=== PATIENT | male | born 1945 | race Caucasian/White ===

== ENCOUNTER 2024-04-07 16:25 | Observation (INO) | payer OTHER, SELFPAY ==
[2024-04-07 16:27] VITALS: BMI 24.5
[2024-04-07 16:35] VITALS: BP 176/83; PULSE 68; RESP 20; TEMP 36.8; O2SAT 96
--- NOTE | 2024-04-07 16:52 | XR_ITS ---
Examination: Abdomen 2 views TECHNIQUE: AP upright AP supine abdomen 2 views Exam date and time: April 07, 2024 1657 hours INDICATIONS: Unable to eat 24 hours FINDINGS: No free air. Nonobstructive bowel gas pattern Intact osseous structures Visualized lung edwards clear IMPRESSION: Nonobstructive bowel gas pattern
--- NOTE | 2024-04-07 16:53 | PD.EDRME ---
Rapid Medical Screening Exam RME Arrival date/time: 04/07/24 16:25 78-year-old male with history of esophageal stricture presents emergency department today stating he cannot drink any fluids without vomiting Chief Complaint: Dental/Oral/Throat Vital signs: Vital Signs Temperature 98.2 F 04/07/24 16:35 Pulse Rate 68 04/07/24 16:35 Respiratory Rate 20 04/07/24 16:35 Blood Pressure 176/83 H 04/07/24 16:35 Pulse Oximetry (%) 96 04/07/24 16:35 Oxygen Delivery Method Room Air 04/07/24 16:35
[2024-04-07 17:24] LABS: Basophils # (Auto) 0.1 Thou/mm3 (0.0-0.2); Basophils % (Auto) 1 % (0-2.5); Eosinophils # (Auto) 0.1 Thou/mm3 (0.0-0.5); Eosinophils % (Auto) 2 % (0-10); Hematocrit 44.2 % (41.0-53.0); Hemoglobin 14.9 g/dL (13.5-16.0); Immature Granulocytes % (Auto) 0 % (0-0); Immature Granulocytes Auto 0.01 Thou/mm3 (0.00-0.00); Lymphocytes # (Auto) 1.7 Thou/mm3 (1.0-4.8); Lymphocytes % (Auto) 23 % (10-50); Mean Corpuscular HGB Conc 33.7 g/dl (31.0-37.0); Mean Corpuscular Hemoglobin 29.2 pg (25.0-35.0); Mean Corpuscular Volume 87 fL (80-100); Monocytes # (Auto) 0.6 Thou/mm3 (0.0-0.8); Monocytes % (Auto) 8 % (0-12); Neutrophils # (Auto) 5.1 Thou/mm3 (1.8-7.7); Neutrophils % (Auto) 68 % (37-80); Nucleated Red Blood Cell % 0 /100 WBC (0); Platelet Count 258 Thou/mm3 (140-440); RDW Standard Deviation 42.5 fL (35.1-43.9); Red Blood Count 5.11 Miln/mm3 (4.50-5.90); White Blood Count 7.5 Thou/mm3 (3.8-10.6)
[2024-04-07 17:38] LABS: Partial Thromboplastin Time 21.1 Seconds (22.0-36.0); Prothrombin Time 11.4 Seconds (9.0-12.2)
[2024-04-07 17:52] LABS: Alanine Aminotransferase 20 U/L (10-49); Albumin, Serum 4.8 gm/dL (3.4-4.8); Albumin/Globulin Ratio 1.7 (1.2-2.2); Alkaline Phosphatase 82 U/L (46-116); Anion Gap 8 (7-16); Aspartate Amino Transferase 21 U/L (0-34); BUN/Creatinine Ratio 14 Ratio (12-20); Bilirubin,Total 0.8 mg/dL (0.3-1.2); Blood Urea Nitrogen 15 mg/dL (9-23); Calcium 9.7 mg/dL (8.3-10.6); Calcium (Corrected) 9.7 mg/dL (8.5-10.1); Carbon Dioxide 26.3 mMol/L (20.0-31.0); Chloride 107 mMol/L (98-107); Creatinine (Component) 1.1 mg/dL (0.6-1.3); Estimated Creatinine Clearance 56.2 mL/min (>60); Globulin 2.9 gm/dL (2.3-3.5); Glucose 99 mg/dL (74-106); Lipase 40 U/L (12-53); Osmolality,Calculated 282 (275-295); Potassium 4.4 mMol/L (3.4-5.1); Sodium 141 mMol/L (136-145); Total Protein 7.7 gm/dL (5.7-8.2); eGFR > 60 See Note
[2024-04-07 21:14] VITALS: BP 185/95; PULSE 62; RESP 16; TEMP 36.9; O2SAT 99
[2024-04-07 22:02] VITALS: BP 174/85; PULSE 61; RESP 17; TEMP 36.9; O2SAT 96
--- NOTE | 2024-04-07 22:41 | PD.EDADULT ---
ED General RME/HPI General Chief complaint: Dental/Oral/Throat Stated complaint: UNALBLE TO SWALLOW FLUIDS x 24 HRS,HX STRICTURE Time Seen by Provider: 04/07/24 22:01 Arrival date/time: 04/07/24 16:25 RME / HPI RME / HPI narrative: 04/07/24 16:25 78-year-old male with history of esophageal stricture presents emergency department today stating he cannot drink any fluids without vomiting ------- Dr. Brewer?s Main ED Evaluation: 78yo male with a history of esophageal stricture presents to the ED due to not being able to tolerating fluids. Patient states he ate something yesterday morning, reporting he feels like there's a piece of food stuck in his esophagus. He states he hasn't been able to drink fluids since [id number] yesterday, reporting he vomits everything back up. He denies any fever, chills, abdominal pain or any other associated symptoms. He has had previous esophageal dilations by Dr. Londono, who has since retired. He was seen by his PCP today, who sent him here for evaluation. Related Data Home Medications ?Medication ?Instructions ?Recorded ?Confirmed benazepril 20 mg tablet (Lotensin) 20 mg PO BID ##0 08/30/12 06/26/19 tizanidine 4 mg tablet (Zanaflex) 3 tab PO HS #0 tabs 12/18/14 06/25/19 ascorbic acid (vitamin C) 100 mg 100 mg PO QDAY 08/09/17 06/25/19 tablet melatonin 10 mg capsule 10 mg PO QDAY 08/09/17 06/25/19 tamsulosin 0.4 mg capsule 0.4 mg PO QDAY 08/09/17 06/25/19 levetiracetam 500 mg tablet 500 mg PO BID 03/21/19 06/26/19 clopidogrel 75 mg tablet 75 mg PO QDAY 06/25/19 06/25/19 Previous Rx's ?Medication ?Instructions ?Recorded cephalexin 500 mg capsule (Keflex) 500 mg PO BID #20 caps 06/26/19 Allergies Allergy/AdvReac Type Severity Reaction Status Date / Time ciprofloxacin (From Cipro) Allergy Severe Unresponsiv Verified 04/07/24 16:29 e tramadol Allergy Severe CONTRAINDICATED Verified 02/10/25 16:29 FOR SEIZURE ACTIVITY Review of Systems Review of Systems Systems Reviewed: All systems reviewed, normal except as documented Past Medical History Past Medical History NEUROLOGIC: Positive Neurological Disorders, Cerebrovascular Accident and Seizures CARDIAC: Positive Myocardial Infarction, Cardiac Arrhythmia and Hypertension; Negative Cardiac Disorders or Congestive Heart Failure RESPIRATORY: Negative Chronic Obstructive Pulmonary Disease (COPD) or Asthma GASTROINTESTINAL: Negative Gastrointestinal Disorders or Hepatitis GENITOURINARY: Positive Genitourinary Disorders and Benign Prostatic Hyperplasia; Negative Renal Disease MUSCULOSKELETAL: Positive Musculoskeletal Disorders, Arthritis and Fractures ENDOCRINE: Negative Endocrine Disorders, Diabetes Mellitus Type 1 or Diabetes Mellitus Type 2 HEMATOLOGIC: Negative Blood Disorders or Sickle Cell Disease OTHER HISTORY: Positive Hospitalization; Negative Autoimmune Disease, Shingles, Falls, Blood Transfusions, Blood Transfusion Reaction, Anesthesia Reactions, Chemotherapy, Radiation Therapy, MRSA, Chicken Pox, Measles, Rubella (Russian Measles) or Cancer Family History FAMILY HISTORY: Positive Family Cardiac Disorders, Family Gastrointestinal Problems and Family Surgery; Negative Family Psychiatric Problems, Family Respiratory Disorders, Family Cancer or Family Anesthesia Reaction Surgical History SURGICAL: Positive Cardiac Surgery, Coronary Stent, Cardiac Catheterization, Pacemaker, Angiogram and Joint Replacement Social History SMOKING STATUS: Never smoker SUBSTANCE USE: does not use ED Exam Narrative Physical exam: GENERAL APPEARANCE: alert and oriented x 4, well-developed, well-nourished, is unable to tolerate fluids, no acute distress VITALS: All vitals were reviewed and the pulse ox is 96% on room air, which is normal according to my interpretation. HEENT: Normocephalic, atraumatic; pupils equal, round, reactive to light; EOMI; mucous membranes pink, moist; oropharynx clear NECK: Supple LUNGS: CTABL; no wheezes, no rales, no rhonchi HEART: Regular rate, regular rhythm; normal S1, S2; no murmurs ABDOMEN: non distended; normal BS; soft, no tenderness, no guarding, no rebound; no masses, no organomegaly, no hernia BACK: no CVA tenderness EXTREMITIES: atraumatic; no edema NEUROLOGIC: awake; alert and oriented x4; cranial nerves II-XII grossly intact; no focal sensory or motor deficits PSYCHIATRIC: appropriate mood and affect SKIN: warm, dry, normal color; no rashes Course Quality Measures none Orders Category Date Time Status XR abdomen flat and uprght Stat Exams 04/07/24 16:52 Completed CBC Stat Lab 04/07/24 17:10 Completed Comprehensive Metabolic Panel Stat Lab 04/07/24 17:10 Completed Lipase Stat Lab 04/07/24 17:10 Completed PT [Prothrombin Time with INR] Stat Lab 04/07/24 17:10 Completed PTT [Partial Thromboplastin Time] Stat Lab 04/07/24 17:10 Completed Vital Signs Vital signs: Vital Signs Temperature 98.2 F 04/07/24 16:35 Pulse Rate 68 04/07/24 16:35 Respiratory Rate 20 04/07/24 16:35 Blood Pressure 176/83 H 04/07/24 16:35 Pulse Oximetry (%) 96 04/07/24 16:35 Oxygen Delivery Method Room Air 04/07/24 16:[address] 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 ------- [facility] Report Signed Patient: ASHLEY CHAVEZ [facility] Record#: [id number] Birthdate: 1945 Age/Sex: 78 / M Location: [facility] Attending Dr: Ordering Physician: Vinod GRAY)Theodore NP Date of Service: 04/07/24 Procedure(s): XR abdomen flat and uprght Accession Number(s): [id number] cc: Vinod GRAY),Theodore LEE; Latrell Rosales MD~ Examination: Abdomen 2 views TECHNIQUE: AP upright AP supine abdomen 2 views Exam date and time: April 07, 2024 1657 hours INDICATIONS: Unable to eat 24 hours FINDINGS: No free air. Nonobstructive bowel gas pattern Intact osseous structures Visualized lung edwards clear IMPRESSION: Nonobstructive bowel gas pattern Dictated By: Latrell Rosales MD Signed By: <Electronically signed by Latrell Rosales MD in OV> 04/07/24 1715 Medications Medications considered but not ordered:: none Medication administrations:: see above, if any Consultations Consultation(s) initiated? (list below): Yes Consultation #1 (Physician, Specialty, Details): Discussed case with [Dr. Nichols] from [GI] regarding [consultation]. Discussed patients ED course, exam findings, labs, and radiology results. States to admit the patient. Agrees to consult. Time: 22:41 Consultation #2 (Physician, Specialty, Details): Discussed case with [the resident physician, attending Dr. Bonner] from Hospitalist service regarding admission. Discussed patients ED course, exam findings, labs, and radiology results. The Hospitalist [agrees] to accept the patient for admission. Time: 22:45 Diagnosis Differential Diagnosis ED Complaint MDM: esophageal stricture, esophageal CA, esophageal foreign body Most likely diagnosis given after review of the tests above:: esophageal stricture Admission Indicated Admission indicated?: indicated Explain why admission is indicated or not indicated:: Dr. Nichols to see tomorrow. Admission Request Was there a request for admission?: Yes Admission Attestation Admission request attestation: Discussed case with [] from Hospitalist service regarding admission. Discussed patients ED course, exam findings, labs, and radiology results. The Hospitalist [agrees,declines] to accept the patient for admission. Disposition Plan Disposition Plan: Admit Medical Decision Making Differential Diagnosis Differential Diagnosis: esophageal stricture, esophageal CA, esophageal foreign body Lab Data 04/07/24 17:10 04/07/24 17:10 Labs: Lab Results 04/07/24 Range/Units 17:10 WBC 7.5 (3.8-10.6) Thou/mm3 RBC 5.11 (4.50-5.90) Miln/mm3 Hgb 14.9 (13.5-16.0) g/dL Hct 44.2 (41.0-53.0) % MCV 87 (80-100) fL MCH 29.2 (25.0-35.0) pg MCHC 33.7 (31.0-37.0) g/dl RDW Std Deviation 42.5 (35.1-43.9) fL Plt Count 258 (140-440) Thou/mm3 Neut % (Auto) 68 (37-80) % Lymph % (Auto) 23 (10-50) % Rosebud % (Auto) 8 (0-12) % Eos % (Auto) 2 (0-10) % Baso % (Auto) 1 (0-2.5) % Neut # (Auto) 5.1 (1.8-7.7) Thou/mm3 Lymph # (Auto) 1.7 (1.0-4.8) Thou/mm3 Rosebud # (Auto) 0.6 (0.0-0.8) Thou/mm3 Eos # (Auto) 0.1 (0.0-0.5) Thou/mm3 Baso # (Auto) 0.1 (0.0-0.2) Thou/mm3 Immature Gran # (Auto) 0.01 H (0.00-0.00) Thou/mm3 Absolute Nucleated RBC 0.00 (0.00-0.00) Thou/mm3 Immature Gran % 0 (0-0) % Nucleated RBC % 0 (0) /100 WBC PT 11.4 (9.0-12.2) Seconds INR 1.0 (0.9-1.3) APTT 21.1 L (22.0-36.0) Seconds Sodium 141 (136-145) mMol/L Potassium 4.4 (3.4-5.1) mMol/L Chloride 107 (98-107) mMol/L Carbon Dioxide 26.3 (20.0-31.0) mMol/L Anion Gap 8 (7-16) BUN 15 (9-23) mg/dL Creatinine 1.1 (0.6-1.3) mg/dL Estim Creat Clear Calc 56.2 L (>60) mL/min eGFR > 60 (60 - ) See Note BUN/Creatinine Ratio 14 (12-20) Ratio Glucose 99 (74-106) mg/dL Calculated Osmolality 282 (275-295) Calcium 9.7 (8.3-10.6) mg/dL Corrected Calcium 9.7 (8.5-10.1) mg/dL Total Bilirubin 0.8 (0.3-1.2) mg/dL AST 21 (0-34) U/L ALT 20 (10-49) U/L Alkaline Phosphatase 82 (46-116) U/L Total Protein 7.7 (5.7-8.2) gm/dL Albumin 4.8 (3.4-4.8) gm/dL Globulin 2.9 (2.3-3.5) gm/dL Albumin/Globulin Ratio 1.7 (1.2-2.2) Lipase 40 (12-53) U/L Discharge Plan Plan Patient Disposition: Admit Acute Care w/in Hospital Prescriptions/Referrals Prescriptions/Med Rec: No Action tamsulosin 0.4 mg capsule,extended release 24hr 0.4 mg PO QDAY ascorbic acid (vitamin C) 100 mg tablet 100 mg PO QDAY melatonin 10 mg capsule 10 mg PO QDAY benazepril [Lotensin] 20 MG tablet 20 mg PO BID Qty: 0 tizanidine [Zanaflex] 4 MG tablet 3 tab PO HS Qty: 0 levetiracetam 500 mg Tablet 500 mg PO BID clopidogrel 75 mg Tablet 75 mg PO QDAY cephalexin [Keflex] 500 mg Capsule 500 mg PO BID Qty: 20 0RF Referrals: Lee Morel MD [Primary Care Provider] - In 1 week Problem List Clinical Impression: Esophageal stricture Patient/Caregiver Discharge Instructions Print Language: New Zealander Stand Alone Forms: Shannon Award Info., Patient Portal Info Letter
[2024-04-07] MEDS: DEXTROSE 5%-0.45% NS 1,000 ML 100 ML IV (23:17)
--- NOTE | 2024-04-07 23:46 | PD.RESHP ---
Documentation for date of: 04/07/24 HPI History of Present Illness Chief complaint: Dysphagia History of present illness: Mr. Vasquez is a 78-year-old male with history of coronary artery disease, status post pacemaker, hypertension, TIA, hyperlipidemia, seizure, esophageal stricture and BPH who presented to [facility] from home on 04/07/2024 with a chief complaint of dysphagia. According to the patient his symptoms started around Sunday afternoon, reports that he was unable to swallow complained of regurgitation of contents immediately, was unable to swallow liquids which progressively got worse, reports no p.o. intake since then. Patient also complained of hiccups and dry heaving associated with dysphagia, denies any blood in vomitus. Patient reached out to his primary care physician who recommended going to the emergency department. Patient does report history of esophageal stricture, reported he had his last dilation about [address] Londono recovery analyst. Patient otherwise reports history of seizure, followed with Dr. Arevalo, takes Keppra once a day. Patient follows with Dr. Maicol Bain, who is patient's merchandise coordinator. Gastroenterology consulted in ED and recommended admission for further workup. ED Course: ED Vitals: On presentation BP 176/83, P68, RR 20, temp 98.2, O2 sat 96 on room air ED Labs: No significant labs in ED ED Imaging:Abdominal x-ray in ED significant for nonobstructive bowel gas pattern ED Treatment: Patient was started on 1/2NS-D5 in ED, GI consulted in ED recommended admission for EGD and possible dilation of stricture Review of Systems Review of Systems Narrative Review of Systems: ROS: -CONSTITUTIONAL: Denies weight loss, fever and chills. -HEENT: Denies changes in vision and hearing. -RESPIRATORY: Denies SOB and cough. -CV: Denies palpitations and Chest Pain. -GI: Positive for dysphagia, vomiting, dry heaves and hiccups. -: Denies dysuria and urinary frequency. -MSK: Denies myalgia and joint pain. -SKIN: Denies rash and pruritus. -NEUROLOGICAL: Denies headache and syncope. -PSYCHIATRIC: Denies recent changes in mood. Denies anxiety and depression. Past Medical History Past Medical History Comments PMH COMMENT: PMH: Positive for coronary artery disease, status post pacemaker, hypertension, TIA, hyperlipidemia, seizure, esophageal stricture and BPH PSHx: Pacemaker placement, cardiac cath with stent placement, right elbow and right shoulder surgeries Allergies: Ciprofloxacin, tramadol, atorvastatin and other statins, tizanidine Social history: -Smoking: Denies -Alcohol Use: Denies -Illicit Drug Use: Denies -Martial Status: Family History: Family history positive for esophageal strictures in 2 sisters Exam Vital Signs Temp Pulse Resp BP Pulse Ox O2 Del Method 98.5 F 61 17 174/85 H 96 Room Air 04/07/24 22:02 04/07/24 22:02 04/07/24 22:02 04/07/24 22:02 04/07/24 22:02 04/07/24 22:02 Narrative Exam Physical Exam General: Awake and in no acute distress. Conversational and non-toxic appearing. HEENT: Normocephalic, atraumatic, mucous membranes moist. Heart: Regular rate and rhythm, no murmurs. Lungs: Clear to auscultation with no wheezing or crackles. Abdomen: Soft, nondistended, nontender, positive bowel sounds. ?No guarding or rebound tenderness. Neurologic: Alert and oriented x3, no gross neurological deficit, and patient able to move all 4 extremities. Extremities: No edema. Skin: No rash or ecchymoses. Results: Labs 04/07/24 17:10 04/07/24 17:10 Labs: Short CBC 04/07/24 Range/Units 17:10 WBC 7.5 (3.8-10.6) Thou/mm3 Hgb 14.9 (13.5-16.0) g/dL Hct 44.2 (41.0-53.0) % Plt Count 258 (140-440) Thou/mm3 BMP 04/07/24 17:10 Sodium 141 Potassium 4.4 Chloride 107 Carbon Dioxide 26.3 BUN 15 Creatinine 1.1 Glucose 99 Calcium 9.7 Liver Function 04/07/24 Range/Units 17:10 Total Bilirubin 0.8 (0.3-1.2) mg/dL AST 21 (0-34) U/L ALT 20 (10-49) U/L Alkaline Phosphatase 82 (46-116) U/L Albumin 4.8 (3.4-4.8) gm/dL Quality Measures Quality Measures none Advance care planning discussed with:: patient and spouse Medications Home Medications and Allergies Home Medications ?Medication ?Instructions ?Recorded ?Confirmed ?Type benazepril 20 mg tablet (Lotensin) 20 mg PO DAILY ##0 08/30/12 04/08/24 History tizanidine 4 mg tablet (Zanaflex) 3 tab PO HS #0 tabs 12/18/14 04/08/24 History ascorbic acid (vitamin C) 100 mg 100 mg PO QDAY 08/09/17 06/25/19 History tablet melatonin 10 mg capsule 10 mg PO QDAY 08/09/17 04/08/24 History tamsulosin 0.4 mg capsule 0.4 mg PO HS 08/09/17 04/08/24 History levetiracetam 500 mg tablet 500 mg PO DAILY 03/21/19 04/08/24 History clopidogrel 75 mg tablet 75 mg PO QDAY 06/25/19 04/08/24 History aspirin-sodium bicarbonate-citric 1 ea PO QWEEK PRN upset stomach 04/08/24 04/08/24 History acid 324 mg effervescent tablet carboxymethylcellulose sodium 1 % 1 drp ophthalmic (eye) TID PRN dry 04/08/24 04/08/24 History eye liquid gel drops eye(s) cyclosporine 0.05 % eye drops in a 1 drp ophthalmic (eye) BID 04/08/24 04/08/24 History dropperette (Restasis) ezetimibe 10 mg tablet 10 mg PO HS 04/08/24 04/08/24 History ibuprofen 200 mg tablet (Advil) 200 mg PO DAILY PRN sleep 04/08/24 04/08/24 History Allergies Allergy/AdvReac Type Severity Reaction Status Date / Time ciprofloxacin (From Cipro) Allergy Severe Unresponsiv Verified 04/07/24 16:29 e tramadol Allergy Severe CONTRAINDICATED Verified 04/07/24 16:29 FOR SEIZURE ACTIVITY Visit Medications Acetaminophen (Acetaminophen 325 Mg Tablet) 650 mg PO Q6H PRN PRN Reason: PAIN SCALE 1-3 (mild Stop: 05/07/24 23:35 Heparin Sodium (Porcine) (Heparin Sod Inj 5000 Unit/Ml Vial) 5,000 unit SC Q12H ALANNAH Stop: 04/22/24 08:59 Hydralazine HCl (Hydralazine Inj 20 Mg/Ml Vial) 10 mg IV Q6H PRN PRN Reason: SBP > 180, DBP>100 Stop: 05/07/24 23:39 Dextrose/Sodium Chloride (D5-1/2ns) 1,000 mls @ 100 mls/hr IV .Q10H ALANNAH Stop: 04/08/24 08:44 Last Admin: 04/07/24 23:17 Dose: 100 mls/hr Levetiracetam (Levetiracetam Inj 100 Mg/Ml Vial 5ml) 500 mg IVP QPM ALANNAH Stop: 05/08/24 20:59 Ondansetron HCl (Ondansetron Inj 2 Mg/Ml Inj 2 Ml) 4 mg IV Q6H PRN; Protocol PRN Reason: NAUSEA OR VOMITING Stop: 05/07/24 23:35 Pantoprazole Sodium (Pantoprazole Inj 40 Mg Vial) 40 mg IVP QDAY ALANNAH Stop: 05/08/24 08:59 Discontinued Medications Levetiracetam (Levetiracetam Inj 100 Mg/Ml Vial 5ml) 500 mg IVP X1 ONE Stop: 04/07/24 23:42 Assessment & Plan Plan Assessment and plan: Summary: Mr. Vasquez is a 78-year-old male with history of coronary artery disease, status post pacemaker, hypertension, TIA, hyperlipidemia, seizure, esophageal stricture and BPH who presented to [facility] from home on 04/07/2024 with a chief complaint of dysphagia. #Dysphagia Patient complained of imaging throwing up after p.o. intake, reported dysphagia to both liquids and solids, reported having no p.o. intake since Sunday. Does have history of esophageal stricture, reported dilation about [address] Londono. Plan: -GI consulted, appreciate recommendations -N.p.o. -Scheduled for EGD in a.m. -IV Protonix -IV maintenance fluids #Seizure disorder Patient follows Dr. Arevalo outpatient. On Keppra 500 mg daily, patient reports taking Keppra in the evening daily. Plan: -IV Keppra 500 every evening #Hypertension #Coronary artery disease #Status post pacemaker placement Patient on benazepril at home, Plavix at home, patient follows with Dr. Zoey Bain outpatient. Plan: -IV hydralazine as needed -Resume home meds when patient's able to tolerate p.o. meds #Hyperlipidemia Patient is allergic to statins, on ezetimibe at home Plan: -Follow lipid panel in a.m. -Resume home medication when able #Benign prostate hyperplasia N.p.o. currently, resume home meds when able DVT prophylaxis: Heparin every 12 hours GI prophylaxis: IV Protonix Diet: N.p.o. Lines: Peripheral IV Code status: Full code Case discussed with Attending Dr. Bonner. Ronald Dahl PGY1 Disclaimer: This note was dictated by speech recognition. Minor errors in financial operations analyst may be present due to voice recognition software. Attending Provider Attestation/Addendum I have examined the patient, reviewed labs and imaging findings, discussed the case with the resident(s), and reviewed entered orders. I agree with the plan of care as outlined in this note, with these additional summaries/recommendations: Patient is a 78-year-old male with a past medical history of CAD status post 2 stents, seizure disorder, bradycardia status post pacemaker, primary hypertension, prostamegaly, and primary hypertension who presents to [facility] emergency department on 04/07/2024 with chief complaints of symptomatic dysphagia and unable to tolerate any form of oral intake. Gastroenterology was consulted and recommends admission for EGD and thus hospitalist team consulted for continuation of care. #Dysphagia Secondary to both solids and liquids and unable to tolerate any form of oral intake in the last 24 hours. Most likely secondary to esophageal stricture and patient reports he had esophageal dilation approximately [address] Bry ALMEIDA XR: No evidence of SBO or free air under the diaphragm Plan: Start IV maintenance fluids. NPO. Start IV Protonix. Gastroenterology consulted via emergency department with plans for endoscopic intervention. Repeat chemistry and hematology panel in AM. #CAD: Plan: Denies taking aspirin. Will resume home Plavix when able. # Seizure disorder: Patient reports he has been seizure-free for over 5 years. Continue home Keppra #Primary Hypertension: Pending home medication reconciliation. Restart home antihypertensives when tolerating oral intake. PRN hydralazine for SBP >180 or DBP >100 # Prostamegaly: Continue home Flomax when able. Dr. Bonner
[2024-04-08] VITALS (17 sets, daily range): BP systolic 136–183; BP diastolic 75–99; PULSE 59–606; RESP 12–96; TEMP 36.2–37.1; O2SAT 94–100; BMI 25.2
[2024-04-08] MEDS: levETIRAcetam INJ 100 MG/ML VIAL 5ML 500 MG IVP ×2 (00:05→20:23)
--- NOTE | 2024-04-08 00:46 | PC.NURSE ---
REPORT GIVEN TO IRVING MAR. ALL QUESTIONS ASKED AND ANSWERED. IVF INFUSING WITHOUT DIFFICULTY. PATIENT TRANSFERRED TO FLOOR WITH STAFF. PATIENT REMAINS ON ROOM AIR.
--- NOTE | 2024-04-08 02:00 | PC.NURSE ---
re additional home med rec: Pt takes Q Bedtime- Vitamin C, Vitamin K2, Vitamin D4, and Magnesium po. Pt does not remember dose of these vitamins.
[2024-04-08 05:28] LABS: Basophils # (Auto) 0.1 Thou/mm3 (0.0-0.2); Basophils % (Auto) 1 % (0-2.5); Eosinophils # (Auto) 0.3 Thou/mm3 (0.0-0.5); Eosinophils % (Auto) 4 % (0-10); Hematocrit 40.6 % (41.0-53.0); Hemoglobin 13.7 g/dL (13.5-16.0); Immature Granulocytes % (Auto) 0 % (0-0); Immature Granulocytes Auto 0.01 Thou/mm3 (0.00-0.00); Lymphocytes # (Auto) 1.9 Thou/mm3 (1.0-4.8); Lymphocytes % (Auto) 29 % (10-50); Mean Corpuscular HGB Conc 33.7 g/dl (31.0-37.0); Mean Corpuscular Hemoglobin 29.1 pg (25.0-35.0); Mean Corpuscular Volume 86 fL (80-100); Monocytes # (Auto) 0.7 Thou/mm3 (0.0-0.8); Monocytes % (Auto) 10 % (0-12); Neutrophils # (Auto) 3.6 Thou/mm3 (1.8-7.7); Neutrophils % (Auto) 55 % (37-80); Nucleated Red Blood Cell % 0 /100 WBC (0); Platelet Count 228 Thou/mm3 (140-440); Red Blood Count 4.71 Miln/mm3 (4.50-5.90); White Blood Count 6.5 Thou/mm3 (3.8-10.6)
--- NOTE | 2024-04-08 05:38 | PC.NURSE ---
RT notified of EKG order.
--- NOTE | 2024-04-08 06:00 | EKG_ITS ---
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
--- NOTE | 2024-04-08 06:02 | PC.NURSE ---
EKG reordered as RT not able to see EKG order.
[2024-04-08 06:16] LABS: Alanine Aminotransferase 16 U/L (10-49); Albumin, Serum 4.3 gm/dL (3.4-4.8); Albumin/Globulin Ratio 1.7 (1.2-2.2); Alkaline Phosphatase 70 U/L (46-116); Anion Gap 7 (7-16); Aspartate Amino Transferase 17 U/L (0-34); BUN/Creatinine Ratio 17 Ratio (12-20); Bilirubin,Total 0.9 mg/dL (0.3-1.2); Blood Urea Nitrogen 17 mg/dL (9-23); Calcium 9.5 mg/dL (8.3-10.6); Calcium (Corrected) 9.5 mg/dL (8.5-10.1); Carbon Dioxide 25.6 mMol/L (20.0-31.0); Cardiac Risk Estimate 4.4 RATIO (4.0-6.7); Chloride 109 mMol/L (98-107); Cholesterol 176 mg/dL (132-200); Estimated Creatinine Clearance 61.8 mL/min (>60); Globulin 2.5 gm/dL (2.3-3.5); Glucose 110 mg/dL (74-106); HDL Cholesterol 40 mg/dL (40-60); LDL Cholesterol,Calculated 116 mg/dL (0-130); Magnesium 2.2 mg/dL (1.6-2.6); Osmolality,Calculated 285 (275-295); Phosphorous 2.7 mg/dL (2.4-5.1); Potassium 3.9 mMol/L (3.4-5.1); Sodium 142 mMol/L (136-145); Total Protein 6.8 gm/dL (5.7-8.2); Triglycerides 99 mg/dL (30-150); eGFR > 60 See Note
--- NOTE | 2024-04-08 08:53 | PD.IMCONS ---
HPI Data of Consult Requesting Physician: Arnulfo Bonner MD Primary Care Provider: Lee Morel MD Consult Narrative Reason for consult: Stricture esophagus History of present illness: 78 years of male evaluated at the request of the ER physician He presented there with dysphagia and unable to swallow not clear whether he has a foreign body obstruction He could not even swallow water and spit it the entire amount out He does have a previous history of endoscopic dilatation about 7 to [address] Londono cc:: cc: Arnulfo Bonner MD Review of Systems Review of Systems Systems Reviewed: All systems reviewed, normal except as documented Past Medical History Surgical History OTHER SURGICAL HX: Essential hypertension Hyperlipidemia BPH Meds Home Medications and Allergies Home Medications ?Medication ?Instructions ?Recorded ?Confirmed ?Type benazepril 20 mg tablet (Lotensin) 20 mg PO DAILY ##0 08/30/12 04/08/24 History tizanidine 4 mg tablet (Zanaflex) 3 tab PO HS #0 tabs 12/18/14 04/08/24 History ascorbic acid (vitamin C) 100 mg 100 mg PO QDAY 08/09/17 06/25/19 History tablet melatonin 10 mg capsule 10 mg PO QDAY 08/09/17 04/08/24 History tamsulosin 0.4 mg capsule 0.4 mg PO HS 08/09/17 04/08/24 History levetiracetam 500 mg tablet 500 mg PO DAILY 03/21/19 04/08/24 History clopidogrel 75 mg tablet 75 mg PO QDAY 06/25/19 04/08/24 History aspirin-sodium bicarbonate-citric 1 ea PO QWEEK PRN upset stomach 04/08/24 04/08/24 History acid 324 mg effervescent tablet carboxymethylcellulose sodium 1 % 1 drp ophthalmic (eye) TID PRN dry 04/08/24 04/08/24 History eye liquid gel drops eye(s) cyclosporine 0.05 % eye drops in a 1 drp ophthalmic (eye) BID 04/08/24 04/08/24 History dropperette (Restasis) ezetimibe 10 mg tablet 10 mg PO HS 04/08/24 04/08/24 History ibuprofen 200 mg tablet (Advil) 200 mg PO DAILY PRN sleep 04/08/24 04/08/24 History Allergies Allergy/AdvReac Type Severity Reaction Status Date / Time ciprofloxacin (From Cipro) Allergy Severe Unresponsiv Verified 04/07/24 16:29 e tramadol Allergy Severe CONTRAINDICATED Verified 04/07/24 16:29 FOR SEIZURE ACTIVITY Exam Vital Signs Temp Pulse Resp BP Pulse Ox O2 Del Method 98.7 F 61 18 149/89 H 100 Room Air 04/08/24 08:00 04/08/24 08:00 04/08/24 08:00 04/08/24 08:00 04/08/24 08:00 04/08/24 08:00 Constitutional Comments: Alert oriented Routine Respiratory Exam Comments: Normal to auscultation Routine Abdominal Exam Comments: Soft nontender Results Labs 04/08/24 04:12 04/08/24 04:12 Labs: Short CBC 04/07/24 04/08/24 Range/Units 17:10 04:12 WBC 7.5 6.5 (3.8-10.6) Thou/mm3 Hgb 14.9 13.7 (13.5-16.0) g/dL Hct 44.2 40.6 L (41.0-53.0) % Plt Count 258 228 D (140-440) Thou/mm3 BMP 04/07/24 04/08/24 17:10 04:12 Sodium 141 142 Potassium 4.4 3.9 D Chloride 107 109 H Carbon Dioxide 26.3 25.6 BUN 15 17 Creatinine 1.1 1.0 Glucose 99 110 H Calcium 9.7 9.5 Liver Function 04/07/24 04/08/24 Range/Units 17:10 04:12 Total Bilirubin 0.8 0.9 (0.3-1.2) mg/dL AST 21 17 (0-34) U/L ALT 20 16 (10-49) U/L Alkaline Phosphatase 82 70 (46-116) U/L Albumin 4.8 4.3 D (3.4-4.8) gm/dL Assessment and Plan Additional Assessment & Plan Additional Plan: # Esophageal stricture # excessive salivation secondary to the stricture Plan Consent obtained for fiberoptic esophagogastro duodenoscopy with possible endoscopic dilatation with guidewire savory dilatation or endoscopic balloon dilatation or both under intravenous moderate sedation N.p.o. Further evaluation after above Thank you once again for the opportunity to participate in the care of this patient
[2024-04-08] MEDS: PANTOPRAZOLE INJ 40 MG VIAL IVP (10:19)
[2024-04-08] MEDS: hydrALAZINE INJ 20 MG/ML VIAL 10 MG IV (11:55)
--- NOTE | 2024-04-08 12:00 | ESPR_ITS ---
Documentation for date of: 04/08/24 Subjective Subjective Interval history: Patient seen at bedside. No acute overnight events. He is a 78-year-old male with a past medical history of hypertension, hyperlipidemia, seizure disorder, CAD, status post pacemaker, esophageal stricture who presented to the ED on 04/07/2024 with complaints of dysphagia. Patient has not had a similar episode about 6 years ago for which she had esophageal dilation done by special crimes investigator Dr. Londono. In the ED, patient was stable except for elevated blood pressure of 176. This was n.p.o., GI was consulted and scheduled for upper endoscopy this morning. At bedside today, he has no complaints and is anticipating the procedure being done. Exam Vital Signs Temp Pulse Resp BP Pulse Ox O2 Del Method 98.7 F 62 18 175/99 H 100 Room Air 04/08/24 08:00 04/08/24 11:55 04/08/24 08:00 04/08/24 11:55 04/08/24 08:00 04/08/24 08:00 Narrative Exam GENERAL: AAOX3 NEURO: CITY COUNCIL MEMBER grossly intact, moves extremities x4 HEENT: Moist mucosa. Eyes open, symmetrical, & clear CARDIO: No chest pain on palpation. Heart RRR, no obvious murmurs PULM: No noted coughing/dyspnea. Lungs CTA B/L GI: Abdomen soft, nondistended, no pain on palpation. BSx4 URO/CASHIERS SUPERVISOR:: No further abnormalities noted. SKIN/MSK/EXT: No wounds/rashes/edema/amputations, no pain on palpation. Pedal pulses present B/L Objective Labs 04/08/24 04:12 04/08/24 04:12 Labs: Laboratory Results - last 24 hr 04/07/24 04/08/24 17:10 04:12 WBC 7.5 6.5 RBC 5.11 4.71 Hgb 14.9 13.7 Hct 44.2 40.6 L MCV 87 86 MCH 29.2 29.1 MCHC 33.7 33.7 RDW Std Deviation 42.5 42.0 Plt Count 258 228 D Neut % (Auto) 68 55 Lymph % (Auto) 23 29 Moca % (Auto) 8 10 Eos % (Auto) 2 4 Baso % (Auto) 1 1 Neut # (Auto) 5.1 3.6 Lymph # (Auto) 1.7 1.9 Moca # (Auto) 0.6 0.7 Eos # (Auto) 0.1 0.3 Baso # (Auto) 0.1 0.1 Immature Gran # (Auto) 0.01 H 0.01 H Absolute Nucleated RBC 0.00 0.00 Immature Gran % 0 0 Nucleated RBC % 0 0 PT 11.4 INR 1.0 APTT 21.1 L Sodium 141 142 Potassium 4.4 3.9 D Chloride 107 109 H Carbon Dioxide 26.3 25.6 Anion Gap 8 7 BUN 15 17 Creatinine 1.1 1.0 Estim Creat Clear Calc 56.2 L 61.8 eGFR > 60 > 60 BUN/Creatinine Ratio 14 17 Glucose 99 110 H Calculated Osmolality 282 285 Calcium 9.7 9.5 Corrected Calcium 9.7 9.5 Phosphorus 2.7 Magnesium 2.2 Total Bilirubin 0.8 0.9 AST 21 17 ALT 20 16 Alkaline Phosphatase 82 70 Total Protein 7.7 6.8 Albumin 4.8 4.3 D Globulin 2.9 2.5 Albumin/Globulin Ratio 1.7 1.7 Triglycerides 99 Cholesterol 176 LDL Cholesterol, Calc 116 HDL Cholesterol 40 Cholesterol/HDL Ratio 4.4 Lipase 40 Quality Measures Quality Measures none Advance care planning discussed with:: patient and spouse Assessment & Plan Assessment Current Active Medications: Generic Name Dose Route Start Last Admin Trade Name Freq PRN Reason Stop Dose Admin Acetaminophen 650 mg 04/07/24 23:36 Acetaminophen 325 Mg Tablet PO 05/07/24 23:35 Q6H PRN PAIN SCALE 1-3 (mild Heparin Sodium (Porcine) 5,000 unit 04/08/24 09:00 04/08/24 10:24 Heparin Sod Inj 5000 Unit/Ml Vial SC 04/22/24 08:59 Not Given Q12H ALANNAH Hydralazine HCl 10 mg 04/08/24 07:53 04/08/24 11:55 Hydralazine Inj 20 Mg/Ml Vial IV 05/07/24 23:39 10 mg Q6H PRN Administration SBP > 160 Levetiracetam 500 mg 04/08/24 21:00 Levetiracetam Inj 100 Mg/Ml Vial 5ml IVP 05/08/24 20:59 QPM ALANNAH Ondansetron HCl 4 mg 04/07/24 23:36 Ondansetron Inj 2 Mg/Ml Inj 2 Ml IV 05/07/24 23:35 Q6H PRN NAUSEA OR VOMITING Protocol Pantoprazole Sodium 40 mg 04/08/24 09:00 04/08/24 10:19 Pantoprazole Inj 40 Mg Vial IVP 05/08/24 08:59 40 mg QDAY ALANNAH Administration Plan Summary: The patient is a 78-year-old male with history of coronary artery disease, status post pacemaker, hypertension, TIA, hyperlipidemia, seizure, esophageal stricture and BPH who presented to [facility] from home on 04/07/2024 with a chief complaint of dysphagia. #Dysphagia #History of esophageal stricture s/p dilation Patient complained of imaging throwing up after p.o. intake, reported dysphagia to both liquids and solids, reported having no p.o. intake since Sunday. Does have history of esophageal stricture, reported dilation about [address] Londono. Plan: -GI consulted, appreciate recommendations -N.p.o. -Scheduled for EGD today -IV Protonix -IV maintenance fluids #Seizure disorder Patient follows Dr. Arevalo outpatient. On Keppra 500 mg daily, patient reports taking Keppra in the evening daily. Plan: -IV Keppra 500 every evening #Hypertension #Coronary artery disease #Status post pacemaker placement Patient on benazepril at home, Plavix at home, patient follows with Dr. Zoey Bain outpatient. Plan: -IV hydralazine as needed -Resume home meds when patient's able to tolerate p.o. meds #Hyperlipidemia Patient is allergic to statins, on ezetimibe at home Lipid panel: LDL- 116, HDL- 40, Trig- 99 Plan: -Resume home medication after procedure #Benign prostate hyperplasia N.p.o. currently, resume tamsulosin when able DVT prophylaxis: Heparin every 12 hours GI prophylaxis: IV Protonix Diet: N.p.o. Lines: Peripheral IV Code status: Full code Case was discussed with Dr Stokes PGY-2 and attending physician, Dr Joyce Loza MD PGY-1 Disclaimer: This note was dictated by speech recognition. Minor errors in fuel efficient automobile designer may be present due to voice recognition software. Attending Provider Attestation/Addendum I reviewed labs, imaging, EKG, home medications and prior available records. Face to face evaluation was performed by me. I have personally examined the patient and discussed assessment and plan with the IM team. I reviewed the resident note and agree with the plan with exceptions as below. Dysphagia: Pharyngeal versus esophageal. Likely in the setting of esophageal stricture. Consulted GI for EGD and possible dilation. N.p.o. prior to the procedure.
--- NOTE | 2024-04-08 18:50 | SUR.PHASEI ---
1850: Pt. AAOx4, vitals stable, breathing unlabored, no complaint of pain or nausea, no dressing inplace, no active bleed noted, report received from Gianna VILLATORO.
--- NOTE | 2024-04-08 19:17 | SUR.PHASEI ---
1916: Pt. AAOx4, vitals stable, breathing unlabored, no complaint of pain or nausea, no dressing in place, no active bleed noted, pt. tolerated sips of water well, gave report to Philly VILLATORO prior to transfer to room 367. Family made aware of transfer to room.
--- NOTE | 2024-04-08 20:25 | PC.NURSE ---
Received patient from FATIMAH, alert, ambulated to bathroom, voided. at bedside, states that patient is going home tonight as per FATIMAH TARIQ. Explained that primary MD has to be notified first.
--- NOTE | 2024-04-08 20:30 | PC.NURSE ---
Multiple calls made to Hospitalist regarding patient possible discharge tonight. Will be in to see patient.
--- NOTE | 2024-04-08 20:50 | PC.NURSE ---
Tolerated Jello and pudding well. Aspiration precaution observed. Patient ambulated around the unit.
--- NOTE | 2024-04-09 09:33 | ESDS_ITS ---
Planned Discharge Date 04/09/24 DS: Providers Provider Date of admission: 04/07/24 23:36 Primary care physician: Lee Morel MD Admitting Provider: Arnulfo Bonner MD Attending Provider on Admission: Raghav Cook MD Consults: 04/07/24 22:42 Consult to Gastroenterology Stat Comment: Consulting Provider: Ivett Nichols 04/08/24 02:12 Referral Registered Dietitian Routine Comment: Attending Provider on DC: Kendall Loza MD Discharging Provider: Kendall Loza MD DS: Diagnosis Problem List Completed Was Problem List Reviewed/Reconciled?: Yes Hospital Course Hospital Course Hospital course: The patient is a 78-year-old male with a past medical history of hypertension, hyperlipidemia, seizure disorder, CAD status post pacemaker, esophageal stric ture presented to the ED on 04/07/2024 with complaints of dysphagia. He had had a similar episode about 6 years ago for which he had esophageal dilation done and has been relatively symptom-free since then. On this occasion, dysphagia was initially 2 solids but progressed to liquids as well. He was admitted for further evaluation and management of dysphagia. Cutter Operator Tile Dr. Nichols was consulted the patient was placed n.p.o. for procedure. He had upper endoscopy done on 04/08/[address] Nichols which showed some esophagitis with biopsies taken and esophageal stenosis which was dilated with a balloon. The patient tolerated procedure well and was cleared for discharge. He is hemodynamically and clinically stable. He is recommended to follow-up with his PCP within 1 week of discharge and continue on omeprazole 40 mg daily for 90 days. #Dysphagia s/p dilation #History of esophageal stricture status post dilation #Seizure disorder #CAD #Status post pacemaker placement Discharge instructions: Follow-up with PCP within 1 week of discharge Continue omeprazole 40 mg daily for 90 days Return to the ED if symptoms worsen Case was discussed with Dr Stokes PGY-2 and attending physician, Dr Joyce Loza MD PGY-1 Disclaimer: This note was dictated by speech recognition. Minor errors in fish seiner may be present due to voice recognition software. Status at Discharge Overall status at discharge: patient is back to baseline Time Spent with Patient Time attestation: Total time spent providing and/or coordinating discharge services: Time spent: Greater than 30 minutes Exam Vital Signs Temp Pulse Resp BP Pulse Ox O2 Del Method 97.4 F 67 17 136/86 H 97 Room Air 04/08/24 21:20 04/08/24 21:20 04/08/24 21:20 04/08/24 21:20 04/08/24 21:20 04/08/24 21:20 Narrative Exam GENERAL: AAOX3 NEURO: PRESS TENDER grossly intact, moves extremities x4 HEENT: Moist mucosa. Eyes open, symmetrical, & clear CARDIO: No chest pain on palpation. Heart RRR, no obvious murmurs PULM: No noted coughing/dyspnea. Lungs CTA B/L GI: Abdomen soft, nondistended, no pain on palpation. BSx4 URO/HONING MACHINE SET UP OPERATOR TOOL:: No further abnormalities noted. SKIN/MSK/EXT: No wounds/rashes/edema/amputations, no pain on palpation. Pedal pulses present B/L Discharge Plan Plan Patient Disposition: HOME (Self Care) Disposition Comment: Home Patient condition on transfer: Stable Care Plan Goals: Follow up with PCP in 1 week. Return to ED if symptoms worsen. Prescriptions/Referrals Prescriptions/Med Rec: New pantoprazole 40 mg tablet,delayed release (DR/EC) 40 mg PO QDAY Qty: 30 0RF Continued tamsulosin 0.4 mg capsule,extended release 24hr 0.4 mg PO HS ascorbic acid (vitamin C) 100 mg tablet 100 mg PO QDAY benazepril [Lotensin] 20 MG tablet 20 mg PO DAILY Qty: 0 levetiracetam 500 mg Tablet 500 mg PO DAILY clopidogrel 75 mg Tablet 75 mg PO QDAY ezetimibe 10 mg tablet 10 mg PO HS cyclosporine [Restasis] 0.05 % dropperette 1 drp OPHTHALMIC (EYE) BID Rx Instructions: 1 drop in both eyes carboxymethylcellulose sodium 1 % drops, liquid gel 1 drp ophthalmic (eye) TID PRN (Reason: dry eye(s)) Discontinued melatonin 10 mg capsule 10 mg PO QDAY tizanidine [Zanaflex] 4 MG tablet 3 tab PO HS Qty: 0 ibuprofen [Advil] 200 mg tablet 200 mg PO DAILY PRN (Reason: sleep) Rx Instructions: prn for relaxing sleep. aspirin-sod bicarb-citric acid 324 mg tablet, effervescent 1 ea PO QWEEK PRN (Reason: upset stomach) Referrals: Lee Morel MD [Primary Care Provider] - Patient/Caregiver Discharge Instructions Other Discharge Activity Instructions:: Follow up with PCP in 1 week. Return to ED if symptoms worsen. Education Materials: Esophageal Dilation, Upper GI Endoscopy, Treating Dysphagia Print Language: [place] Citizen Stand Alone Forms: Shannon Award Info., Patient Portal Info Letter, Work/Release Restrictions Discharge Order Discharge Orders: Discharge (Routine); Ordered 04/08/24 Ordered By: Ronald Dahl Quality Discharge Quality Measures VTE prophylaxis MD Attestestation MD Attestation I reviewed labs, imaging, EKG, home medications and prior available records. Face to face evaluation was performed by me. I have personally examined the patient and discussed assessment and plan with the IM team. I reviewed the resident note and agree with the plan with exceptions as below. Dysphagia: Pharyngeal versus esophageal. Likely in the setting of esophageal stricture. Consulted GI for EGD and possible dilation. N.p.o. prior to the procedure. He underwent the EGD and he is status post dilation. Patient tolerated his diet well. Discussed with GI: Okay to DC. Time spent is 35 minutes. More than 50% of the time was spent on patient education and coordination of care.
== END 2024-04-08 21:31 | disposition home or self-care (01) ==
LOC: SERX 22:49 → S3SX 04-08 05:41 → SERHOLD 04-08 11:10 → S3SX 04-08 11:12
PROVIDERS: Nurse Practitioner Primary Care; Specialist; Admitting Provider Student in an Organized Health Care Education/Training Program; Emergency Provider Emergency Medicine; PCP Family Medicine; Visit Provider Student in an Organized Health Care Education/Training Program
PROC: (CPT 43239; principal; 2024-04-08 18:45)
DX: K22.2 Esophageal obstruction (principal); E78.5 Hyperlipidemia, unspecified; G40.909 Epilepsy, unspecified, not intractable, without status epilepticus; I10 Essential (primary) hypertension; I25.10 Atherosclerotic heart disease of native coronary artery without angina pectoris; I25.2 Old myocardial infarction; K11.7 Disturbances of salivary secretion; K20.90 Esophagitis, unspecified without bleeding; M19.90 Unspecified osteoarthritis, unspecified site; N40.0 Benign prostatic hyperplasia without lower urinary tract symptoms; Z82.49 Family history of ischemic heart disease and other diseases of the circulatory system; Z86.73 Personal history of transient ischemic attack (TIA), and cerebral infarction without residual deficits; Z95.0 Presence of cardiac pacemaker; Z95.5 Presence of coronary angioplasty implant and graft; K29.70 Gastritis, unspecified, without bleeding; K44.9 Diaphragmatic hernia without obstruction or gangrene; K29.50 Unspecified chronic gastritis without bleeding; K31.89 Other diseases of stomach and duodenum; Z01.810 Encounter for preprocedural cardiovascular examination
CPT/HCPCS: 43248; 43249; 43239; 36415; 74019; 80053; 80061; 83690; 83735; 84100; 84484; 85025; 85610; 85730; 93005; 94762; 96374; A4649; C1726; C1769; G0378; J0360; J1200; J1953; J2250; J2470; J3010; J7042

== ENCOUNTER → 2024-04-18 | Outpatient (CLI) | payer OTHER, SELFPAY ==
[2024-04-18 11:31] LABS: Collection Type, Urine Clean Catch; Squamous Epithelial Cell,Urine 0 /hpf (0-5); WBC,Urine 0 /hpf (0-5)
[2024-04-18 12:02] LABS: Basophils % (Auto) 1 % (0-2.5); Eosinophils # (Auto) 0.2 Thou/mm3 (0.0-0.5); Eosinophils % (Auto) 3 % (0-10); Hematocrit 41.1 % (41.0-53.0); Hemoglobin 13.9 g/dL (13.5-16.0); Immature Granulocytes % (Auto) 0 % (0-0); Immature Granulocytes Auto 0.01 Thou/mm3 (0.00-0.00); Lymphocytes # (Auto) 1.9 Thou/mm3 (1.0-4.8); Lymphocytes % (Auto) 38 % (10-50); Mean Corpuscular HGB Conc 33.8 g/dl (31.0-37.0); Mean Corpuscular Hemoglobin 29.3 pg (25.0-35.0); Mean Corpuscular Volume 87 fL (80-100); Monocytes # (Auto) 0.4 Thou/mm3 (0.0-0.8); Monocytes % (Auto) 8 % (0-12); Neutrophils # (Auto) 2.4 Thou/mm3 (1.8-7.7); Neutrophils % (Auto) 49 % (37-80); Nucleated Red Blood Cell % 0 /100 WBC (0); Platelet Count 234 Thou/mm3 (140-440); RDW Standard Deviation 41.3 fL (35.1-43.9); Red Blood Count 4.74 Miln/mm3 (4.50-5.90); White Blood Count 4.9 Thou/mm3 (3.8-10.6)
[2024-04-18 12:12] LABS: Glucose Estimated Average 120 mg/dL (80-131); Hemoglobin A1C 5.8 % Hgb (4.8-6.0)
[2024-04-18 12:26] LABS: Vitamin B12 381 pg/mL (211-911)
[2024-04-18 12:28] LABS: Alanine Aminotransferase 16 U/L (10-49); Albumin, Serum 4.1 gm/dL (3.4-4.8); Albumin/Globulin Ratio 1.7 (1.2-2.2); Alkaline Phosphatase 74 U/L (46-116); Anion Gap 7 (7-16); Aspartate Amino Transferase 16 U/L (0-34); BUN/Creatinine Ratio 10 Ratio (12-20); Bilirubin,Total 0.6 mg/dL (0.3-1.2); Blood Urea Nitrogen 12 mg/dL (9-23); Calcium 9.5 mg/dL (8.3-10.6); Calcium (Corrected) 9.5 mg/dL (8.5-10.1); Carbon Dioxide 28.9 mMol/L (20.0-31.0); Cardiac Risk Estimate 4.7 RATIO (4.0-6.7); Chloride 105 mMol/L (98-107); Cholesterol 201 mg/dL (132-200); Creatinine (Component) 1.2 mg/dL (0.6-1.3); Globulin 2.4 gm/dL (2.3-3.5); Glucose 104 mg/dL (74-106); HDL Cholesterol 43 mg/dL (40-60); LDL Cholesterol,Calculated 132 mg/dL (0-130); Osmolality,Calculated 280 (275-295); Potassium 4.9 mMol/L (3.4-5.1); Sodium 141 mMol/L (136-145); Thyroid Stimulating Hormone 1.35 uIU/mL (0.55-4.78); Total Protein 6.5 gm/dL (5.7-8.2); Triglycerides 130 mg/dL (30-150); eGFR > 60 See Note
[2024-04-18 12:39] LABS: Iron 120 mcg/dL (65-175); Prostate Specific Antigen 5.89 ng/mL (0-4.00)
[2024-04-18 12:41] LABS: Bilirubin,Urine Negative (Negative); Blood,Urine Negative (Negative); Clarity,Urine Clear (Clear/Hazy); Color,Urine Lt-Yellow (Lt Yel-Yel); Culture Indicated,Urine Not Indicated; Glucose, Urine Negative (Negative); Ketones,Urine Negative (Negative); Leukocyte Esterase,Urine Negative (Negative); Nitrite,Urine Negative (Negative); Protein,Urine Negative (Neg - Trace); RBC,Urine 1 /hpf (0-3); Specific Gravity,Urine 1.017 (1.001-1.035); Urobilinogen,Urine Negative mg/dL (0.0-1.0)
[2024-04-24 06:52] LABS: Fecal Globin Result NOT DETECTED (NOT DETECTED)
== END | disposition home or self-care (01) ==
LOC: COPL 11:04
PROVIDERS: PCP Family Medicine; Referring Provider Nurse Practitioner Family; Visit Provider Nurse Practitioner Family
DX: Z00.00 Encounter for general adult medical examination without abnormal findings (principal); I10 Essential (primary) hypertension; E78.2 Mixed hyperlipidemia; R73.03 Prediabetes; R97.20 Elevated prostate specific antigen [PSA]; D63.8 Anemia in other chronic diseases classified elsewhere
CPT/HCPCS: 36415; 80053; 80061; 81001; 82274; 82607; 83036; 83540; 84153; 84443; 85025; G0328

== ENCOUNTER → 2024-07-31 | Outpatient (BNVA) | payer OTHER, SELFPAY | END | disposition home or self-care (01) | PROVIDERS: PCP Family Medicine; Referring Provider Family Medicine; Visit Provider Urology | DX: N40.1 Benign prostatic hyperplasia with lower urinary tract symptoms (principal); N13.8 Other obstructive and reflux uropathy; R97.20 Elevated prostate specific antigen [PSA]; I10 Essential (primary) hypertension; I48.91 Unspecified atrial fibrillation; Z95.0 Presence of cardiac pacemaker; E78.00 Pure hypercholesterolemia, unspecified; Z86.73 Personal history of transient ischemic attack (TIA), and cerebral infarction without residual deficits | CPT/HCPCS: 81003; 99212; G0463 ==

== ENCOUNTER → 2024-08-27 | Outpatient (CLI) | payer OTHER, SELFPAY ==
--- NOTE | 2024-08-27 15:53 | XR_ITS ---
Examination: Knee, left , 3 views Technique: Knee AP, lateral, oblique 3 views Date and time of exam: August 27, 2024, 1613 hours Comparison June 29, 2015. INDICATIONS: Softball injury to the knee one week ago with knee pain. FINDINGS: Total left knee arthroplasty. Satisfactory alignment. No fracture. No loosening of the prosthetic components IMPRESSION: No fracture or dislocation.
== END | disposition home or self-care (01) ==
LOC: CDIM 15:49
PROVIDERS: PCP Family Medicine; Referring Provider Family Medicine; Visit Provider Family Medicine
DX: S89.92XA Unspecified injury of left lower leg, initial encounter (principal); Y93.64 Activity, baseball
CPT/HCPCS: 73562